=== PATIENT | female | born 1945 | race Caucasian/White ===

== ENCOUNTER → 2018-09-20 | Outpatient (CLI) | payer MEDICARE ==
[~2018-09-20] MED LIST: AMLO5TAB4 PO; CITA20TA6 PO; DICL100T PO; DICL75TA3 PO; DIPH25CA61 PO; GABA300C10 PO; HYDR-3307 PO; LEVO75TA PO; NITR1PAT20 TD; OMEP40CA6 PO; SENN1TAB8 PO
[2018-09-20 15:10] LABS: BASOPHILS # (AUTO) 0.09 x10^3/uL (0-0.1); BASOPHILS % (AUTO) 1 % (0-1); EOSINOPHILS # (AUTO) 0.34 x10^3/uL (0-0.4); EOSINOPHILS % (AUTO) 5 % (1-7); LYMPHOCYTES % (AUTO) 25 % (22-44); MD NO; MEAN CORPUSCULAR HEMOGLOBIN 32.6 pg (27.0-34.8); MEAN CORPUSCULAR HGB CONC 33.7 g/dL (32.4-35.8); MEAN CORPUSCULAR VOLUME 96.6 fL (80-100); MEAN PLATELET VOLUME 8.3 fL (7.4-10.4); MONOCYTES # (AUTO) 0.61 x10^3/uL (0.2-0.8); MONOCYTES % (AUTO) 9 % (2-9); NEUTROPHILS # (AUTO) 4.35 x10^3/uL (1.8-6.8); NEUTROPHILS % (AUTO) 61 % (42-75); PLATELET COUNT 254 x10^3/uL (130-400); RED BLOOD COUNT 3.99 x10^6/uL (3.82-5.3); RED CELL DISTRIBUTION WIDTH 14.8 % (9.6-15.2)
[2018-09-20 15:20] LABS: MICROSCOPIC NOT IND
[2018-09-20 15:21] LABS: ANION GAP 5 mmol/L (5-15); CALCIUM 8.8 mg/dL (8.5-10.1); CHLORIDE 103 mmol/L (98-107); CREATININE 0.84 mg/dL (0.55-1.02)
[2018-09-20 15:25] LABS: INTERNATIONAL NORMALIZED RATIO 1.01 (0.93-1.1); PROTHROMBIN TIME 10.7 Seconds (9.6-11.5)
[2018-09-20 15:50] LABS: CULTURE INDICATED? NO
== END | disposition home or self-care (01) ==
LOC: STAR 13:57
PROVIDERS: ATTEND Orthopaedic Surgery Adult Reconstructive Orthopaedic Surgery
DX: Z01.818 Encounter for other preprocedural examination (principal); M17.12 Unilateral primary osteoarthritis, left knee
CPT/HCPCS: 36415; 80048; 81003; 85025; 85610; 85730; 87081; 93005

== ENCOUNTER 2018-09-28 05:42 | Inpatient (IN) | payer MEDICARE ==
[~2018-09-28] VITALS: Ht 160 cm; Wt 57.4 kg
[~2018-09-28 05:42] MED LIST changes: +SENN-177 PO; -SENN1TAB8 PO
[2018-09-28] MEDS ORDERED: LACTATED RINGERS 1,000 ML IV SCH (06:25)
[2018-09-28] MEDS ORDERED: TRANEXAMIC ACID 100 MG/ML, 10ML ONE ×2 (06:57→06:58)
[2018-09-28] MEDS ORDERED: FENTANYL PF 250 MCG/5ML ONE (07:01)
[2018-09-28] MEDS ORDERED: MIDAZOLAM 1 MG/ML, 2ML ONE (07:01)
[2018-09-28] MEDS ORDERED: ACETAMINOPHEN 500 MG TABLET ONE (07:18)
[2018-09-28] MEDS ORDERED: GABAPENTIN 300 MG CAPSULE ONE (07:18)
[2018-09-28] MEDS ORDERED: ACETAMINOPHEN 500 MG TABLET PO ONE (07:30)
[2018-09-28] MEDS ORDERED: GABAPENTIN 300 MG CAPSULE PO ONE (07:30)
[2018-09-28] MEDS ORDERED: GLYCOPYRROLATE 0.2MG/1ML, 5ML ONE (07:36)
[2018-09-28] MEDS ORDERED: DEXAMETHASONE 4 MG/ML, 1ML ONE (07:36)
[2018-09-28] MEDS ORDERED: ONDANSETRON 2MG/ML, 2ML ONE (07:36)
[2018-09-28] MEDS ORDERED: PROPOFOL 10 MG/ML, 20ML ONE (07:36)
[2018-09-28] MEDS ORDERED: ROCURONIUM 10 MG/ML,10ML ONE (07:36)
[2018-09-28] MEDS ORDERED: CEFAZOLIN 1,000 MG ONE (07:36)
[2018-09-28] MEDS ORDERED: SUCCINYLCHOLINE 20 MG/ML, 10ML ONE (07:36)
[2018-09-28] MEDS ORDERED: NEOSTIGMINE 1 MG/ML, 10ML ONE (07:36)
[2018-09-28] MEDS ORDERED: METOPROLOL 1 MG/ML, 5ML IV PRN (08:30)
[2018-09-28] MEDS ORDERED: PROMETHAZINE 25 MG/ML, 1ML IV PRN (08:30)
[2018-09-28] MEDS ORDERED: FENTANYL PF 100 MCG/2ML IV PRN (08:30)
[2018-09-28] MEDS ORDERED: HALOPERIDOL 5 MG/ML IV PRN (08:30)
[2018-09-28] MEDS ORDERED: LABETALOL 5MG/ML, 20ML IV PRN (08:30)
[2018-09-28] MEDS ORDERED: MEPERIDINE/PF 25MG/0.5ML IVPush PRN (08:30)
[2018-09-28] MEDS ORDERED: PROCHLORPERAZINE 5 MG/ML, 2ML IV PRN (08:30)
[2018-09-28] MEDS ORDERED: hydrALAzine 20 MG/ML, 1ML IV PRN (08:30)
[2018-09-28] MEDS ORDERED: DIPHENHYDRAMINE 50 MG/ML, 1ML IVPush PRN (08:30)
[2018-09-28] MEDS ORDERED: OXYcodone 5 MG/5 ML ORAL.SOL UDC PO PRN (08:30)
[2018-09-28] MEDS: HYDROmorphone 2 MG/ML, 1ML IVPush PRN ×4 (09:32→10:18)
[2018-09-28] MEDS: D5%-0.45% NACL 1,000 ML IV SCH ×2 (09:36→19:36)
[2018-09-28] MEDS ORDERED: HYDROmorphone 1 MG/ML, 1ML ONE ×2 (09:44→09:58)
[2018-09-28] MEDS ORDERED: OXYcodone 5 MG/5 ML ORAL.SOL UDC ONE (09:44)
[2018-09-28] MEDS ORDERED: MAGNESIUM HYDROXIDE 8%, 30ML UDC PO PRN (10:00)
[2018-09-28] MEDS ORDERED: PROMETHAZINE 25 MG/ML, 1ML IM PRN (10:00)
[2018-09-28] MEDS ORDERED: LORazepam 1MG TABLET PO PRN (10:00)
[2018-09-28] MEDS ORDERED: SENNA/DOCUSATE TABLET PO PRN (10:00)
[2018-09-28] MEDS ORDERED: ONDANSETRON 4 MG TABLET PO PRN (10:00)
[2018-09-28] MEDS ORDERED: ACETAMINOPHEN 650 MG/20.3 ML UDC PO PRN (10:00)
[2018-09-28] MEDS ORDERED: ZOLPIDEM 5MG TABLET PO PRN (10:00)
[2018-09-28] MEDS ORDERED: DIAZEPAM 5 MG TABLET PO PRN (10:00)
[2018-09-28] MEDS ORDERED: BISACODYL 10 MG SUPP PR PRN (10:00)
[2018-09-28] MEDS ORDERED: ONDANSETRON 2MG/ML, 2ML IV PRN (10:00)
[2018-09-28] MEDS ORDERED: ALUMINUM/MAG/SIMETHICONE 30 ML UDC PO PRN (10:00)
[2018-09-28] MEDS ORDERED: TRANEXAMIC ACID 1,000 MG in SODIUM CHLORIDE 0.9% 100 ML IVPB ONE (10:00)
[2018-09-28] MEDS ORDERED: PROMETHAZINE 12.5 MG SUPP PR PRN (10:00)
[2018-09-28] MEDS ORDERED: DIPHENHYDRAMINE 50 MG CAPSULE PO PRN (10:00)
[2018-09-28] MEDS ORDERED: MEPERIDINE/PF 25MG/ML,1ML ONE (10:18)
[2018-09-28] MEDS ORDERED: CEFAZOLIN PMX 2GM/50ML 50 ML IVPB SCH (11:00)
[2018-09-28] MEDS ORDERED: DOCU-131 PO (11:48)
[2018-09-28] MEDS ORDERED: ASPI81TA45 PO (11:48)
[2018-09-28] MEDS ORDERED: HYDR-3240 PO (11:48)
[2018-09-28 14:18] VITALS: BP 118/72
[2018-09-28] MEDS: HYDROcodone/APAP 5/325 TABLET PO PRN ×2 (14:42→19:48)
[2018-09-28] MEDS: CEFAZOLIN PMX 2GM/50ML 50 ML IVPB SCH (17:14)
[2018-09-28 19:21] VITALS: BP 124/76
[2018-09-28] MEDS: GABAPENTIN 300 MG CAPSULE PO SCH (19:48)
[2018-09-28] MEDS: DOCUSATE 100 MG CAPSULE PO SCH (20:36)
[2018-09-28] MEDS: AMLODIPINE 5 MG TABLET PO SCH (20:36)
[2018-09-28] MEDS ORDERED: HYDROmorphone 2 MG/ML, 1ML ONE (20:41)
[2018-09-28] MEDS: HYDROmorphone 1 MG/ML, 1ML IV PRN (20:43)
[2018-09-28 23:59] VITALS: BP 116/72
[2018-09-29] MEDS: HYDROcodone/APAP 5/325 TABLET PO PRN ×4 (00:51→16:30)
[2018-09-29] MEDS: CEFAZOLIN PMX 2GM/50ML 50 ML IVPB SCH (00:52)
[2018-09-29] MEDS ORDERED: HYDROmorphone 2 MG/ML, 1ML ONE (04:02)
[2018-09-29] MEDS: HYDROmorphone 1 MG/ML, 1ML IV PRN (04:08)
[2018-09-29 04:09] VITALS: BP 137/67
[2018-09-29] MEDS: D5%-0.45% NACL 1,000 ML IV SCH (05:36)
[2018-09-29] MEDS ORDERED: LEVOTHYROXINE 75 MCG TABLET PO SCH (06:00)
[2018-09-29] MEDS ORDERED: ASPIRIN 81 MG TABLET EC PO SCH ×2 (06:00→09:00)
[2018-09-29] MEDS ORDERED: DEXAMETHASONE 4 MG/ML, 1ML IVPush SCH (06:00)
[2018-09-29] MEDS ORDERED: DEXAMETHASONE 4 MG/ML, 5ML ONE (06:41)
[2018-09-29] MEDS: GABAPENTIN 300 MG CAPSULE PO SCH (06:49)
[2018-09-29 07:47] VITALS: BP 152/77
[2018-09-29] MEDS ORDERED: HYDR-3240 PO (08:47)
[2018-09-29] MEDS ORDERED: OMEPRAZOLE 20 MG CAPSULE.DR PO SCH (09:00)
[2018-09-29] MEDS ORDERED: CITALOPRAM 20 MG TABLET PO SCH (09:00)
[2018-09-29] MEDS ORDERED: AMLODIPINE 5 MG TABLET PO SCH (09:00)
[2018-09-29] MEDS ORDERED: MULTIVITAMINS/MINERALS TABLET PO SCH (09:00)
[2018-09-29] MEDS ORDERED: TAMSULOSIN 0.4 MG CAP.ER.24H PO SCH (09:30)
[2018-09-29] MEDS: AMLODIPINE 5 MG TABLET PO SCH (09:51)
[2018-09-29] MEDS: DOCUSATE 100 MG CAPSULE PO SCH (09:51)
[2018-09-29] MEDS ORDERED: KETOROLAC 30 MG/1 ML IV SCH (10:00)
[2018-09-29 12:22] VITALS: BP 113/68
== END 2018-09-29 17:10 | disposition home or self-care (01) | DRG 469 ==
LOC: OUT 05:42 → ORIP 09:36 → 4NOR 10:57 → DCLOUNGE 09-29 16:50
PROVIDERS: ADMIT Orthopaedic Surgery Adult Reconstructive Orthopaedic Surgery; ATTEND Orthopaedic Surgery Adult Reconstructive Orthopaedic Surgery
PROC: 3E0T3BZ Introduction of Anesthetic Agent into Peripheral Nerves and Plexi, Percutaneous Approach (ICD-10-PCS; 2018-09-28)
PROC: 0SRD069 Replacement of Left Knee Joint with Oxidized Zirconium on Polyethylene Synthetic Substitute, Cemented, Open Approach (ICD-10-PCS; principal; 2018-09-28 07:30)
DX: M17.12 Unilateral primary osteoarthritis, left knee (principal); R53.2 Functional quadriplegia; M21.00 Valgus deformity, not elsewhere classified, unspecified site; K21.9 Gastro-esophageal reflux disease without esophagitis; E03.9 Hypothyroidism, unspecified; Z88.2 Allergy status to sulfonamides; Z79.899 Other long term (current) drug therapy
CPT/HCPCS: 36415; 85014; 85018; C1713; G0378; J0690; J1100; J1170; J1885; J2175; J2250; J2405; J2704; J2710; J3010; J3490; C1776; J0330; J7120

== ENCOUNTER 2018-10-11 13:26 | Inpatient (IN) | payer MEDICARE ==
[~2018-10-11] VITALS: Ht 160 cm; Wt 74.3 kg
[~2018-10-11 13:26] MED LIST changes: +ASPI81TA45 PO; +DOCU-131 PO; +HYDR-3240 PO
[2018-10-11] MEDS ORDERED: VANCOMYCIN PER PHARMACY MC ONE (14:00)
[2018-10-11] MEDS ORDERED: LACTATED RINGERS 1,000 ML IV SCH (14:04)
[2018-10-11 14:06] VITALS: BP 153/77
[2018-10-11] MEDS ORDERED: VANCOMYCIN 1,200 MG in SODIUM CHLORIDE 0.9% 250 ML IV ONE (14:30)
[2018-10-11] MEDS ORDERED: GABAPENTIN 300 MG CAPSULE PO ONE (14:30)
[2018-10-11] MEDS ORDERED: ACETAMINOPHEN 500 MG TABLET PO ONE (14:30)
[2018-10-11] MEDS ORDERED: FENTANYL PF 250 MCG/5ML ONE (14:52)
[2018-10-11] MEDS ORDERED: MIDAZOLAM 1 MG/ML, 2ML ONE (14:52)
[2018-10-11] MEDS ORDERED: ROPIvacaine/PF 0.2%, 20 ML ONE ×2 (14:53→16:19)
[2018-10-11] MEDS ORDERED: CEFAZOLIN 1,000 MG ONE (14:57)
[2018-10-11] MEDS ORDERED: PROPOFOL 10 MG/ML, 20ML ONE (14:58)
[2018-10-11] MEDS ORDERED: ONDANSETRON 2MG/ML, 2ML ONE (14:58)
[2018-10-11] MEDS ORDERED: ROCURONIUM 10MG/ML,5ML ONE (14:58)
[2018-10-11] MEDS ORDERED: NEOSTIGMINE 1 MG/ML, 10ML ONE (14:58)
[2018-10-11] MEDS ORDERED: DEXAMETHASONE 4 MG/ML, 1ML ONE (14:58)
[2018-10-11] MEDS ORDERED: SODIUM CHLORIDE 0.9% 0 ML ONE (16:19)
[2018-10-11] MEDS ORDERED: TRANEXAMIC ACID 100 MG/ML, 10ML ONE (16:19)
[2018-10-11] MEDS ORDERED: KETOROLAC 60 MG/2 ML ONE (16:19)
[2018-10-11] MEDS ORDERED: EPINEPHRINE 1 MG/ML, 1ML ONE (16:20)
[2018-10-11] MEDS ORDERED: AcetaZOLAMIDE ER 500 MG CAPSULE ONE (16:50)
[2018-10-11] MEDS ORDERED: ONDANSETRON 2MG/ML, 2ML IV PRN ×2 (17:00→19:30)
[2018-10-11] MEDS ORDERED: PROMETHAZINE 25 MG SUPP PR PRN (17:00)
[2018-10-11] MEDS ORDERED: PROMETHAZINE 12.5 MG SUPP PR PRN ×2 (17:00→19:30)
[2018-10-11] MEDS ORDERED: OXYcodone 5 MG/5 ML ORAL.SOL UDC PO PRN (17:00)
[2018-10-11] MEDS ORDERED: PROMETHAZINE 25 MG/ML, 1ML IV PRN (17:00)
[2018-10-11] MEDS ORDERED: hydrALAzine 20 MG/ML, 1ML IV PRN (17:00)
[2018-10-11] MEDS ORDERED: PROMETHAZINE 25 MG/ML, 1ML IM PRN ×3 (17:00→19:30)
[2018-10-11] MEDS ORDERED: LABETALOL 5MG/ML, 20ML IV PRN (17:00)
[2018-10-11] MEDS ORDERED: HALOPERIDOL 5 MG/ML IV PRN (17:00)
[2018-10-11] MEDS ORDERED: MORPHINE SULFATE 4 MG/ML, 1ML IVPush PRN (17:00)
[2018-10-11] MEDS ORDERED: MEPERIDINE/PF 25MG/0.5ML IVPush PRN (17:00)
[2018-10-11] MEDS ORDERED: ONDANSETRON ODT 8 MG PO PRN (17:00)
[2018-10-11] MEDS ORDERED: FENTANYL PF 100 MCG/2ML ONE ×2 (19:23→20:25)
[2018-10-11] MEDS ORDERED: HYDROmorphone 2 MG/ML, 1ML ONE (19:23)
[2018-10-11] MEDS: HYDROmorphone 2 MG/ML, 1ML IVPush PRN ×4 (19:26→20:13)
[2018-10-11] MEDS: FENTANYL PF 100 MCG/2ML IV PRN ×4 (19:28→20:37)
[2018-10-11] MEDS ORDERED: ACETAMINOPHEN 650 MG/20.3 ML UDC PO PRN (19:30)
[2018-10-11] MEDS ORDERED: ONDANSETRON 4 MG TABLET PO PRN (19:30)
[2018-10-11] MEDS ORDERED: DIAZEPAM 5 MG TABLET PO PRN (19:30)
[2018-10-11] MEDS ORDERED: DIPHENHYDRAMINE 25 MG CAPSULE PO PRN (19:30)
[2018-10-11] MEDS ORDERED: MAGNESIUM HYDROXIDE 8%, 30ML UDC PO PRN (19:30)
[2018-10-11] MEDS ORDERED: SENNA/DOCUSATE TABLET PO PRN (19:30)
[2018-10-11] MEDS ORDERED: ALUMINUM/MAG/SIMETHICONE 30 ML UDC PO PRN (19:30)
[2018-10-11] MEDS ORDERED: BISACODYL 10 MG SUPP PR PRN (19:30)
[2018-10-11] MEDS ORDERED: ZOLPIDEM 5MG TABLET PO PRN (19:30)
[2018-10-11] MEDS ORDERED: HYDROcodone/APAP 10/325 MG TABLET PO PRN (19:30)
[2018-10-11] MEDS ORDERED: TRANEXAMIC ACID 1,000 MG in SODIUM CHLORIDE 0.9% 100 ML IVPB ONE (19:30)
[2018-10-11] MEDS ORDERED: HYDROmorphone 1 MG/ML, 1ML IV PRN (19:30)
[2018-10-11] MEDS ORDERED: OXYcodone 5 MG/5 ML ORAL.SOL UDC ONE (20:25)
[2018-10-11 21:15] VITALS: BP 134/69
[2018-10-11] MEDS ORDERED: GABAPENTIN MC SCH (22:00)
[2018-10-11] MEDS: DOCUSATE 100 MG CAPSULE PO SCH (23:52)
[2018-10-11] MEDS: CEFAZOLIN PMX 2GM/50ML 50 ML IVPB SCH (23:52)
[2018-10-11] MEDS: D5%-0.45% NACL 1,000 ML IV SCH (23:59)
[2018-10-12 00:27] VITALS: BP 129/59
[2018-10-12] MEDS: LORazepam 1MG TABLET PO PRN ×3 (00:58→17:37)
[2018-10-12 02:05] VITALS: BP 129/64
[2018-10-12] MEDS ORDERED: VANCOMYCIN PMX 1GM/200ML 200 ML IVPB ONE (02:30)
[2018-10-12] MEDS: D5%-0.45% NACL 1,000 ML IV SCH ×2 (05:11→15:11)
[2018-10-12] MEDS ORDERED: DEXAMETHASONE 4 MG/ML, 1ML IVPush SCH (06:00)
[2018-10-12] MEDS: CEFAZOLIN PMX 2GM/50ML 50 ML IVPB SCH ×3 (06:19→23:02)
[2018-10-12] MEDS: OMEPRAZOLE 20 MG CAPSULE.DR PO SCH (06:19)
[2018-10-12] MEDS: ASPIRIN 81 MG TABLET EC PO SCH ×2 (06:19→17:37)
[2018-10-12] MEDS: LEVOTHYROXINE 75 MCG TABLET PO SCH (06:19)
[2018-10-12] MEDS ORDERED: LORazepam 2 MG/ML, 1ML IV PRN ×5 (07:00)
[2018-10-12] MEDS ORDERED: LORazepam 0.5MG TABLET PO PRN (07:00)
[2018-10-12] MEDS ORDERED: LORazepam 1MG TABLET PO PRN ×4 (07:00)
[2018-10-12 08:13] VITALS: BP 140/71
[2018-10-12] MEDS: NITROGLYCERIN 0.1 MG/HR PATCH TD SCH (08:37)
[2018-10-12] MEDS: AMLODIPINE 5 MG TABLET PO SCH (08:37)
[2018-10-12] MEDS: CITALOPRAM 20 MG TABLET PO SCH (08:37)
[2018-10-12] MEDS: MULTIVITAMINS/MINERALS TABLET PO SCH (08:37)
[2018-10-12] MEDS: DOCUSATE 100 MG CAPSULE PO SCH ×2 (08:37→21:15)
[2018-10-12 13:09] VITALS: BP 122/64
[2018-10-12] MEDS ORDERED: HYDROcodone/APAP 5/325 TABLET PO PRN (15:30)
[2018-10-12 18:53] VITALS: BP 134/62
[2018-10-12] MEDS: KETOROLAC 30 MG/1 ML IV SCH (19:38)
[2018-10-12] MEDS ORDERED: GABAPENTIN 300 MG CAPSULE PO SCH (21:00)
[2018-10-13 01:01] VITALS: BP 124/53
[2018-10-13] MEDS: D5%-0.45% NACL 1,000 ML IV SCH ×2 (01:11→11:11)
[2018-10-13] MEDS: KETOROLAC 30 MG/1 ML IV SCH ×2 (03:30→12:01)
[2018-10-13] MEDS: CEFAZOLIN PMX 2GM/50ML 50 ML IVPB SCH ×2 (06:25→15:12)
[2018-10-13] MEDS: ASPIRIN 81 MG TABLET EC PO SCH ×2 (06:26→18:00)
[2018-10-13] MEDS: OMEPRAZOLE 20 MG CAPSULE.DR PO SCH (06:26)
[2018-10-13] MEDS: LEVOTHYROXINE 75 MCG TABLET PO SCH (06:26)
[2018-10-13] MEDS ORDERED: ASPI81TA45 PO (06:28)
[2018-10-13] MEDS ORDERED: HYDR-3240 PO (06:28)
[2018-10-13] MEDS ORDERED: SENN-177 PO (06:28)
[2018-10-13] MEDS ORDERED: DOXY100C2 PO (06:36)
[2018-10-13] MEDS: AMLODIPINE 5 MG TABLET PO SCH (08:39)
[2018-10-13] MEDS: MULTIVITAMINS/MINERALS TABLET PO SCH (08:39)
[2018-10-13] MEDS: CITALOPRAM 20 MG TABLET PO SCH (08:39)
[2018-10-13] MEDS: NITROGLYCERIN 0.1 MG/HR PATCH TD SCH (08:40)
[2018-10-13] MEDS: DOCUSATE 100 MG CAPSULE PO SCH (08:40)
[2018-10-13 08:45] VITALS: BP 115/60
[2018-10-13] MEDS ORDERED: DOXYCYCLINE 100MG CAP PO SCH (09:00)
[2018-10-13 14:00] VITALS: BP 110/61
[2018-10-13 18:06] VITALS: BP 114/65
== END 2018-10-13 18:25 | disposition home or self-care (01) | DRG 467 ==
LOC: ORIP 13:26 → 4NOR 21:15
PROVIDERS: ADMIT Orthopaedic Surgery Adult Reconstructive Orthopaedic Surgery; ATTEND Orthopaedic Surgery Adult Reconstructive Orthopaedic Surgery
PROC: 0SRU0J9 Replacement of Left Knee Joint, Femoral Surface with Synthetic Substitute, Cemented, Open Approach (ICD-10-PCS; 2018-10-11)
PROC: 3E0T3BZ Introduction of Anesthetic Agent into Peripheral Nerves and Plexi, Percutaneous Approach (ICD-10-PCS; 2018-10-11)
PROC: 0SPU0JZ Removal of Synthetic Substitute from Left Knee Joint, Femoral Surface, Open Approach (ICD-10-PCS; principal; 2018-10-11 15:30)
DX: T84.023A Instability of internal left knee prosthesis, initial encounter (principal); M80.052A Age-related osteoporosis with current pathological fracture, left femur, initial encounter for fracture; R71.0 Precipitous drop in hematocrit; M97.12XA Periprosthetic fracture around internal prosthetic left knee joint, initial encounter; Z88.2 Allergy status to sulfonamides; I10 Essential (primary) hypertension; E03.9 Hypothyroidism, unspecified; K21.9 Gastro-esophageal reflux disease without esophagitis; Y83.8 Other surgical procedures as the cause of abnormal reaction of the patient, or of later complication, without mention of misadventure at the time of the procedure; Y92.89 Other specified places as the place of occurrence of the external cause
CPT/HCPCS: 36415; 85014; 85018; 87070; 87075; 87102; 87116; 87205; 87206; C1713; G0378; J0171; J0690; J1100; J1170; J1885; J2250; J2405; J2704; J2710; J2795; J3010; J3370; C1776; J7050; J7120

== ENCOUNTER 2019-09-13 10:04 | Outpatient (CLI) | payer MEDICARE ==
[~2019-09-13 10:04] MED LIST changes: +DOXY100C2 PO; -HYDR-3307 PO; +HYDR-36 PO; +OMEP40CA42 PO; -OMEP40CA6 PO
[2019-09-13] MEDS ORDERED: HYDR-3652 PO (10:51)
[2019-09-13 11:15] LABS: BASOPHILS # (AUTO) 0.04 x10^3/uL (0-0.1); BASOPHILS % (AUTO) 1 % (0-1); EOSINOPHILS # (AUTO) 0.28 x10^3/uL (0-0.4); EOSINOPHILS % (AUTO) 5 % (1-7); LYMPHOCYTES # (AUTO) 1.54 x10^3/uL (1-3.4); LYMPHOCYTES % (AUTO) 29 % (22-44); MD NO; MEAN CORPUSCULAR HEMOGLOBIN 30.5 pg (27.0-34.8); MEAN CORPUSCULAR HGB CONC 33.8 g/dL (32.4-35.8); MEAN CORPUSCULAR VOLUME 90.1 fL (80-100); MONOCYTES # (AUTO) 0.65 x10^3/uL (0.2-0.8); MONOCYTES % (AUTO) 12 % (2-9); NEUTROPHILS % (AUTO) 53 % (42-75); PLATELET COUNT 292 x10^3/uL (130-400); RED BLOOD COUNT 4.17 x10^6/uL (3.82-5.3); RED CELL DISTRIBUTION WIDTH 16.5 % (9.6-15.2)
[2019-09-13 11:15] LABS: MICROSCOPIC NOT IND
[2019-09-13 11:19] LABS: CULTURE INDICATED? NO
[2019-09-13 11:24] LABS: INTERNATIONAL NORMALIZED RATIO 0.95 (0.93-1.1); PROTHROMBIN TIME 10.1 Seconds (9.6-11.5)
[2019-09-13 11:26] LABS: ALANINE AMINOTRANSFERASE 19 U/L (12-78); ALBUMIN 3.6 g/dL (3.4-5.0); ANION GAP 7 mmol/L (5-15); CALCIUM 8.6 mg/dL (8.5-10.1); CHLORIDE 99 mmol/L (98-107); CREATININE 0.82 mg/dL (0.55-1.02)
[2019-09-13 11:28] LABS: ALKALINE PHOSPHATASE 143 U/L (45-117); BILIRUBIN,TOTAL 0.5 mg/dL (0.2-1.0); TOTAL PROTEIN 7.9 g/dL (6.4-8.2)
== END 2019-09-13 23:59 | disposition home or self-care (01) ==
LOC: STAR 10:04
PROVIDERS: ATTEND Neurological Surgery
DX: Z01.818 Encounter for other preprocedural examination (principal); M51.37 Other intervertebral disc degeneration, lumbosacral region; M48.062 Spinal stenosis, lumbar region with neurogenic claudication; M47.817 Spondylosis without myelopathy or radiculopathy, lumbosacral region; G95.89 Other specified diseases of spinal cord; Z83.3 Family history of diabetes mellitus
CPT/HCPCS: 36415; 71046; 72110; 80053; 81003; 85025; 85610; 85730; 93005

== ENCOUNTER 2021-02-17 10:56 | Observation (INO) | payer MEDICARE ==
[~2021-02-17] VITALS: Ht 162.6 cm; Wt 53.6 kg
[~2021-02-17 10:56] MED LIST changes: +DIAZ2TAB3 PO; +HYDR-1067 PO; +HYDR-2214 PO; -HYDR-3240 PO; +HYDR-3248 PO; -HYDR-36 PO; +HYDR2TAB40 PO; +METH-640 PO; -OMEP40CA42 PO; +OMEP40CA8 PO
--- NOTE | 2021-02-17 11:20 | NUR ---
Pt presents for nausea x2 weeks. Has MRI of stomach scheduled. Pt reports normal BM. Denies vomitting.
--- NOTE | 2021-02-17 11:21 | NUR ---
MD Denney at bedside for eval.
[2021-02-17] MEDS ORDERED: SODIUM CHLORIDE FLUSH 10ML SYR IVF ONE (11:30)
[2021-02-17] MEDS ORDERED: METOCLOPRAMIDE 5 MG/ML, 2ML IVPush ONE (11:30)
[2021-02-17] MEDS ORDERED: SODIUM CHLORIDE 0.9% 1,000ML IVBOLUS ONE (11:30)
[2021-02-17] MEDS ORDERED: METOCLOPRAMIDE 5 MG/ML, 2ML ONE (11:55)
[2021-02-17 11:59] LABS: MICROSCOPIC NOT IND
[2021-02-17 11:59] LABS: BASOPHILS % (AUTO) 2 % (0-1); EOSINOPHILS % (AUTO) 5 % (1-7); LYMPHOCYTES % (AUTO) 28 % (22-44); MEAN CORPUSCULAR HEMOGLOBIN 28.7 pg (27.0-34.8); MEAN CORPUSCULAR HGB CONC 33.5 g/dL (32.4-35.8); MONOCYTES % (AUTO) 9 % (2-9); NEUTROPHILS % (AUTO) 57 % (42-75); PLATELET COUNT 296 x10^3/uL (130-400); RED BLOOD COUNT 3.98 x10^6/uL (3.82-5.3); RED CELL DISTRIBUTION WIDTH 16.9 % (9.6-15.2)
[2021-02-17 12:02] LABS: ANION GAP 6 mmol/L (5-15); CALCIUM 8.7 mg/dL (8.5-10.1); CHLORIDE 96 mmol/L (98-107)
[2021-02-17 12:03] LABS: ALANINE AMINOTRANSFERASE 20 U/L (12-78); ALBUMIN 3.6 g/dL (3.4-5.0); CREATININE 0.71 mg/dL (0.55-1.02)
[2021-02-17 12:07] LABS: ALKALINE PHOSPHATASE 140 U/L (45-117); BILIRUBIN,TOTAL 0.5 mg/dL (0.2-1.0); TOTAL PROTEIN 7.5 g/dL (6.4-8.2); TROPONIN I < 0.015 ng/mL (0.000-0.045)
--- NOTE | 2021-02-17 12:45 | NUR ---
Pt reports no relief from nausea. Chart up for recheck.
[2021-02-17] MEDS ORDERED: SODIUM CHLORIDE 0.9% 1,000 ML IV ONE (13:00)
[2021-02-17] MEDS ORDERED: ONDANSETRON 2MG/ML, 2ML IVPush ONE (13:00)
--- NOTE | 2021-02-17 13:14 | NUR ---
MD Denney back to bedside to update pt on POC. Changed 1st bag of fluid infusing from bolus rate to 75ml/hr r/t hyponatremic lab value. Refected in OCT. 2nd bag of fluid now considered duplicate order and held at this time.
--- NOTE | 2021-02-17 13:20 | NUR ---
Pt to be admitted to 427. Report to KATIA Booker
[2021-02-17] MEDS ORDERED: PENT400T12 PO (13:30)
[2021-02-17] MEDS ORDERED: CELE50CA PO ×2 (13:30→20:29)
[2021-02-17] MEDS ORDERED: TRAM50TA2 PO ×2 (13:30→20:31)
[2021-02-17 13:53] VITALS: BP 163/74
[2021-02-17 14:15] VITALS: BP 163/74
[2021-02-17] MEDS ORDERED: ONDANSETRON 2MG/ML, 2ML IVPush PRN (14:30)
[2021-02-17] MEDS ORDERED: ACETAMINOPHEN 325 MG TABLET PO PRN (14:30)
[2021-02-17] MEDS ORDERED: ONDANSETRON ODT 4 MG PO PRN (14:30)
[2021-02-17] MEDS: SODIUM CHLORIDE 0.9% 1,000 ML IV SCH (14:57)
[2021-02-17] MEDS: HEPARIN 5,000 UNITS/ML, 1ML SQ SCH (14:57)
[2021-02-17] MEDS: LACTOBACILLUS CHEW TABLET PO SCH ×2 (16:13→20:20)
[2021-02-17 18:46] VITALS: BP 157/68
[2021-02-17] MEDS ORDERED: AMLO-210 PO (20:27)
[2021-02-17 20:39] LABS: ANION GAP 4 mmol/L (5-15); CALCIUM 8.1 mg/dL (8.5-10.1); CHLORIDE 103 mmol/L (98-107); CREATININE 0.56 mg/dL (0.55-1.02)
[2021-02-17] MEDS ORDERED: CITALOPRAM 20 MG TABLET PO ONE (23:30)
[2021-02-17] MEDS ORDERED: AMLODIPINE 5 MG TABLET PO ONE (23:30)
[2021-02-18 00:40] VITALS: BP 149/62
[2021-02-18] MEDS: HEPARIN 5,000 UNITS/ML, 1ML SQ SCH (02:23)
[2021-02-18] MEDS: SODIUM CHLORIDE 0.9% 1,000 ML IV SCH (05:56)
[2021-02-18] MEDS ORDERED: LEVOTHYROXINE 75 MCG TABLET PO SCH (06:00)
[2021-02-18 06:18] LABS: ANION GAP 4 mmol/L (5-15); CALCIUM 8.5 mg/dL (8.5-10.1); CHLORIDE 108 mmol/L (98-107)
[2021-02-18 06:19] LABS: CREATININE 0.56 mg/dL (0.55-1.02)
[2021-02-18] MEDS ORDERED: OMEPRAZOLE 20 MG CAPSULE.DR PO SCH (07:30)
[2021-02-18] MEDS: LACTOBACILLUS CHEW TABLET PO SCH (07:38)
[2021-02-18 08:09] VITALS: BP 131/55
[2021-02-18] MEDS ORDERED: CITALOPRAM 20 MG TABLET PO SCH ×2 (09:00→21:00)
[2021-02-18] MEDS ORDERED: PENTOXIFYLLINE 400 MG TABLET.ER PO SCH (09:00)
[2021-02-18] MEDS ORDERED: LISI5TAB7 PO (10:59)
[2021-02-18] MEDS ORDERED: ACID1TAB7 PO (10:59)
[2021-02-18] MEDS ORDERED: SODIUM CHLORIDE 0.9% 1,000 ML IV SCH (14:30)
[2021-02-18] MEDS ORDERED: LISINOPRIL 5 MG TABLET PO SCH (21:00)
[2021-02-18] MEDS ORDERED: AMLODIPINE 5 MG TABLET PO SCH (21:00)
== END 2021-02-18 12:42 | disposition home or self-care (01) ==
LOC: ED 12:13 → INTOOBSV 12:56 → 4WST 12:56 → DCLOUNGE 02-18 12:40
PROVIDERS: ADMIT Internal Medicine; ATTEND Internal Medicine
DX: E87.1 Hypo-osmolality and hyponatremia (principal); I10 Essential (primary) hypertension; R63.8 Other symptoms and signs concerning food and fluid intake; R63.0 Anorexia; G47.00 Insomnia, unspecified; E03.9 Hypothyroidism, unspecified; K21.9 Gastro-esophageal reflux disease without esophagitis; I73.9 Peripheral vascular disease, unspecified; Z96.659 Presence of unspecified artificial knee joint; Z79.899 Other long term (current) drug therapy
CPT/HCPCS: 36415; 80048; 80053; 81003; 83605; 83690; 84484; 85025; 93005; 96361; 96372; 96374; 99284; G0378; J1644; J2765; J7030